=== PATIENT | female | born 2000 | race American Indian/Alaskan Native ===

== ENCOUNTER 2020-05-21 07:33 | Inpatient (IN) | payer MEDICAID ==
[2020-05-21] MEDS ORDERED: LIDOCAINE (2%) 20 MG/1 ML VIAL 20 ML MDV INFILTRATI NR (08:35)
[2020-05-21] MEDS ORDERED: OXYTOCIN DRIP 30 UNITS/500 ML BAG IV SCH ×2 (09:00)
[2020-05-21] MEDS ORDERED: TERBUTALINE 1 MG/1 ML INJ SUB-Q PRN (09:00)
[2020-05-21] MEDS ORDERED: ePHEDrine SULFATE 50 MG/1 ML INJ IV PRN ×2 (09:00→12:32)
[2020-05-21] MEDS ORDERED: LACTATED RINGERS 1,000 ML IV SCH (09:00)
[2020-05-21] MEDS ORDERED: BUTORPHANOL 2 MG/1 ML INJ IV PRN (09:00)
[2020-05-21 09:17] LABS: Hematocrit 35.7 % (30.3-42.9); Hemoglobin 12.6 gm/dl (10.1-14.3); Mean Corpuscular HGB Conc 35 % (30-34); Mean Corpuscular Volume 90 fl (79-97); Platelet Count 323 K/mm3 (140-440); Red Blood Count 3.95 M/mm3 (3.65-5.03); Red Cell Distribution Width 13.9 % (13.2-15.2)
[2020-05-21] MEDS ORDERED: NALOXONE 2 MG/2 ML INJ IV PRN (12:32)
[2020-05-21] MEDS ORDERED: fentaNYL-BUPIV 2 MCG/ML-0.125% 200 MCG/100 ML BAG EPIDURAL SCH (13:00)
--- NOTE | 2020-05-21 14:00 | Anesthesia Consultation ---
Anesthesia Consult and Med Hx Date of service: 05/21/20 - Airway Anesthetic Teeth Evaluation: Good ROM Head & Neck: Adequate Mental/Hyoid Distance: Adequate Mallampati Class: Class II Intubation Access Assessment: Probably Good - Pre-Operative Health Status ASA Pre-Surgery Classification: ASA2 Proposed Anesthetic Plan: Epidural, Spinal - Pulmonary Hx Asthma: No - Cardiovascular System Hx Hypertension: No - Central Nervous System Hx Seizures: No Hx Psychiatric Problems: No - Endocrine Hx Renal Disease: No Hx Hypothyroidism: No Hx Hyperthyroidism: No - Hematic Hx Anemia: No Hx Sickle Cell Disease: No - Other Systems Hx Alcohol Use: No
--- NOTE | 2020-05-21 14:09 | Progress Note ---
Labor Epidural - Labor Epidural Start Time: 12:40 Stop Time: 12:54 Performed by:: LETITIA CONROY Procedure: Combine spinal epidural for labor After reviewing the labs and anesthesia consent patient is positioned sitting in the bed. Done procedural timeout. Lumbar area was prepped with betadine x3. Local Lidocaine 1%-3cc. L3-4 space G18 epidural needle to loss of resistance with water technique. No blood/CSF. G27 needle placed intrathecally. Injected Marcaine 0.75%-0.5cc. Epidural catheter threaded to 5cm in the epidural space. Negative test dose. Tolerated well. No complications
[2020-05-21] MEDS ORDERED: MINERAL OIL 30 ML ORAL LIQD ONE (15:58)
--- NOTE | 2020-05-21 16:54 | History and Physical Report ---
History of Present Illness Date of examination: 05/21/20 Date of admission: 05/21/20 15:49 Chief complaint: I'm in labor History of present illness: Pt gayle 19 year old who presents wiht contractions since 399.Pt had ROM while in triage. She has had an uncomplicated course with care since first trimester. She is GBS negative, Past History Past Medical History: no pertinent history Past Surgical History: no surgical history Social history: no significant social history - Obstetrical History Expected Date of Delivery: 05/27/20 Actual Gestation: 39 Week(s) 1 Day(s) : 1 Number of Living Children: 0 Medications and Allergies Allergies Allergy/AdvReac Type Severity Reaction Status Date / Time No Known Allergies Allergy Verified 05/21/20 08:03 Home Medications Medication Instructions Recorded Confirmed Last Taken Type Calcium Carbonate [Tums 500MG CHEW] 1 tab PO DAILY 05/21/20 05/21/20 05/20/20 History Ondansetron HCl [Zofran] 4 mg PO DAILY PRN 05/21/20 05/21/20 05/20/20 History Vitamin 1 tab PO DAILY 05/21/20 05/21/20 05/20/20 History Active Meds: Active Medications Butorphanol Tartrate (Butorphanol 2 Mg/1 Ml Inj) 2 mg IV Q2H PRN PRN Reason: Pain , Severe (7-10) Ephedrine Sulfate (Ephedrine Sulfate 50 Mg/1 Ml Inj) 10 mg IV Q2M PRN PRN Reason: Hypotension Last Admin: 05/21/20 13:18 Dose: 10 mg Documented by: Oxytocin/Sodium Chloride (Pitocin/Ns 30 Unit/500ml) 30 units in 500 mls @ 2 m ls/hr IV TITR LILIA; Protocol Last Admin: 05/21/20 09:57 Dose: 4 ml/hr, 4 mls/hr Documented by: Lactated Ringer's (Lactated Ringers) 1,000 mls @ 125 mls/hr IV DIRECT LILIA Last Admin: 05/21/20 09:50 Dose: 125 mls/hr Documented by: Oxytocin/Sodium Chloride (Pitocin/Ns 30 Unit/500ml) 30 units in 500 mls @ 40 mls/hr IV TITR LILIA; Protocol Fentanyl/Bupivacaine/Sodium Chlor (Fentanyl-Bupiv 2 Mcg/Ml-0.125%) 200 mcg in 100 mls @ 12 mls/hr EPIDURAL TITR LILIA; Protocol Last Admin: 05/21/20 13:25 Dose: 12 mls/hr Documented by: Mineral Oil (Mineral Oil 30 Ml Oral Liqd) 30 ml PO QHS PRN PRN Reason: Constipation Naloxone HCl (Naloxone 2 Mg/2 Ml Inj) 0.2 mg IV Q5M PRN PRN Reason: Respiratory sedation Terbutaline Sulfate (Terbutaline 1 Mg/1 Ml Inj) 0.25 mg SUB-Q ONCE PRN PRN Reason: Hyperstimulation/Hypertonicity Review of Systems All systems: negative Genitourinary: leakage of fluid, contractions - Vital Signs Vital signs: Vital Signs Temp Pulse Resp BP Pulse Ox 98.9 F 95 H 16 123/79 98 05/21/20 08:21 05/21/20 08:21 05/21/20 08:21 05/21/20 08:21 05/21/20 08:21 Temp Pulse Resp BP Pulse Ox 98.9 F 118 H 16 125/60 88 05/21/20 08:21 05/21/20 16:46 05/21/20 08:21 05/21/20 16:46 05/21/20 16:45 - Physical Exam Breasts: Positive: deferred Cardiovascular: Regular rate, Normal S1, Normal S2 Lungs: Positive: Clear to auscultation, Normal air movement Abdomen: Positive: normal appearance, soft, normal bowel sounds. Negative: distention, tenderness Genitourinary (Female): Positive: normal external genitalia, normal perenium Vulva: both: normal Vagina: Positive: normal moisture. Negative: discharge Cervix: Negative: lesion, discharge Uterus: Positive: normal size, normal contour Adnexa: both: normal Anus/Rectum: Positive: normal perianal skin, heme negative. Negative: rectal mass, hemorrhoids Extremities: Deep Tendon Reflex Grade: Normal +2 - Obstetrical Cervical Dilatation: 0 Cervical Effacement Percentage: 30 station: +1 Uterine Contraction Pattern: Irregular Uterine Contraction Intensity: Moderate Results Result Diagrams: 05/21/20 08:35 Abnormal lab results 05/21/20 Range/Units 08:35 MCHC 35 H (30-34) % All other labs normal. Assessment and Plan IUP at 39.1 weeks in labor with ROM. Admit for labor augmentation. Begin pitocin. Anticipate .
--- NOTE | 2020-05-21 16:56 | Procedure Note ---
OB Delivery Note - Delivery Date of Delivery: 05/21/20 Surgeon: UNIQUE TRUONG Estimated blood loss: 200cc - Vaginal Delivery presentation: vertex Delivery position: OA Intrapartum events: PROM->1hr before delivery, bleeding site-undetermine Delivery induction: none Delivery augmentation: pitocin Delivery monitor: external FHT, external uterine Route of delivery: Delivery placenta: spontaneous Delivery cord: 3 umbilical vessels Episiotomy: none Delivery laceration: 2nd degree Delivery repair: vicryl Anesthesia: epidural Delivery comments: Viable female delivered over intact perineum with no nuchal cord. Infant had spontaneous cry and was placed on maternal abdomen had . Cord w as clamped and cut when done pulsating. Apgars 7 and 9. Weight 5 pounds 10 ounces. Placenta delivered spontaneously and intact with three-vessel cord. Second-degree laceration repaired successfully with 2-0 Vicryl. The patient tolerated procedure well. There was excellent hemostasis. - A at 1 minute: 7 at 5 minutes: 9 Gender: Female (5,10)
[2020-05-21] MEDS ORDERED: PROMETHAZINE 25 MG TAB PO PRN (20:42)
[2020-05-21] MEDS ORDERED: WITCH HAZEL/ GLYCERIN PAD TP PRN (20:42)
[2020-05-21] MEDS ORDERED: ONDANSETRON 4 MG/2 ML INJ IV PRN (20:42)
[2020-05-21] MEDS ORDERED: HYDROcodone/ACETAMINOPHEN 5-325 MG TAB PO PRN (20:42)
[2020-05-21] MEDS ORDERED: LANOLIN/ZINC/DIMETHICONE (LANSINOH) 7 GM TP PRN (20:42)
[2020-05-21] MEDS ORDERED: diphenhydrAMINE 25 MG CAP PO PRN (20:42)
[2020-05-21] MEDS ORDERED: MAGNESIUM HYDROXIDE (MOM) ORAL LIQD UDC PO PRN (20:42)
[2020-05-21] MEDS ORDERED: PROMETHAZINE 25 MG RECT SUPP PR PRN (20:42)
[2020-05-21] MEDS: DOCUSATE SODIUM 100 MG CAP PO SCH (21:42)
[2020-05-21] MEDS ORDERED: MINERAL OIL 30 ML ORAL LIQD PO PRN (22:00)
[2020-05-21] MEDS: IBUPROFEN 600 MG TAB PO SCH (23:22)
[2020-05-22] MEDS: IBUPROFEN 600 MG TAB PO SCH ×2 (05:26→10:59)
[2020-05-22 10:39] LABS: Hematocrit 30.2 % (30.3-42.9); Hemoglobin 10.3 gm/dl (10.1-14.3)
--- NOTE | 2020-05-22 10:52 | Post Anesthesia Evaluation ---
- Post Anesthesia Evaluation Patient Participated: Yes Airway Patent: Yes Stable Respiratory Function: Yes Nausea/Vomiting: No Temp > 96.8F: Yes Pain Manageable: Yes Adequeate Hydration: Yes Anesthesia Complications: No Block Receding Appropriately: Yes Patient on Ventilator: No
[2020-05-22] MEDS: DOCUSATE SODIUM 100 MG CAP PO SCH ×2 (10:59→21:57)
[2020-05-22] MEDS: PRENATAL VIT27-FE FUMARATE-FOLIC ACID VIT TAB PO SCH (10:59)
[2020-05-23] MEDS: IBUPROFEN 600 MG TAB PO SCH ×3 (01:22→08:42)
--- NOTE | 2020-05-23 10:21 | Progress Note ---
Assessment and Plan PPD 2 s/p doing well. Pt is ok for discharge on today. Discharge was delayed due to needing to stay longer. Subjective - Subjective Date of service: 05/22/20 Interval history: Pt gayle 19 year old who presents wiht contractions since 0400.Pt had ROM while in triage. She has had an uncomplicated course with care since first trimester. She is GBS negative, Patient reports: appetite normal, voiding normally, pain well controlled, ambulating normally : doing well Objective - Vital Signs Latest vital signs: Vital Signs Temp Pulse Resp BP BP Pulse Ox 05/23/20 02:20 20 05/22/20 23:41 98.3 F 93 H 18 107/61 99 05/22/20 15:20 98.1 F 87 20 121/76 05/22/20 12:57 98.4 F 106 H 18 119/77 Intake and Output 05/22/20 05/23/20 05/23/20 22:59 06:59 14:59 Intake Total 800 120 Output Total 600 Balance 200 120 Intake: Oral 440 120 Intake, Free Water 360 Output: Urine 600 Void 600 Other: Total, Intake Amount 120 120 Total, Output Amount 600 # Voids Void 1 1 - Exam Breasts: Present: deferred Cardiovascular: Present: Regular rate, Normal S1, Normal S2 Lungs: Present: Clear to auscultation, Normal air movement Abdomen: Present: normal appearance, soft Uterus: Present: normal, firm Extremities: Present: normal - Labs Labs: Abnormal lab results 05/22/20 Range/Units 09:44 Hct 30.2 L (30.3-42.9) %
[2020-05-23] MEDS: PRENATAL VIT27-FE FUMARATE-FOLIC ACID VIT TAB PO SCH (10:25)
--- NOTE | 2020-05-23 10:28 | Discharge Summary ---
Providers - Providers Date of Admission: 05/21/20 15:49 Date of discharge: 05/23/20 Attending physician: UNIQUE TRUONG Primary care physician: UNIQUE TRUONG Hospitalization Reason for admission: active labor, rupture of membranes Delivery: Episiotomy: none Laceration: 2nd degree complications: none Discharge diagnosis: IUP at term delivered baby: female Hospital course: unremarkable Condition at discharge: Good Disposition: DC-01 TO HOME OR SELFCARE Plan - Discharge Medications Prescriptions: Ibuprofen [Motrin] 800 mg PO Q8HR PRN #40 tablet PRN Reason: Pain, Mild (1-3) HYDROcodone/APAP 5-325 [[place] 5/325] 1 each PO Q6HR PRN #15 tablet PRN Reason: Pain - Provider Discharge Summary Activity: routine, no sex for 6 weeks, no heavy lifting 4 weeks, no strenuous exercise Diet: routine Instructions: routine Additional instructions: [] Smoking cessation referral if applicable(refer to patient education folder for contact #) [] Refer to [facility] Call your doctor immediately for: * Fever > 100.5 * Heavy vaginal bleeding ( >1 pad per hour) * Severe persistent headache * Shortness of breath * Reddened, hot, painful area to leg or breast * Drainage or odor from incision. * Keep incision clean and dry at all times and follow doctor's instructions regarding bathing/showering - Follow up plan Follow up: UNIQUE TRUONG MD [Primary Care Provider] - 6 Weeks
[2020-05-23] MEDS: DOCUSATE SODIUM 100 MG CAP PO SCH (10:55)
[2020-05-23 12:40] VITALS: BP 121/73
== END 2020-05-23 15:21 | disposition home or self-care (01) | DRG 775 ==
LOC: TRG 07:33 → LD 15:49 → OB 20:05
PROVIDERS: ADMIT Obstetrics & Gynecology; ATTEND Obstetrics & Gynecology
PROC: 10E0XZZ Delivery of Products of Conception, External Approach (ICD-10-PCS; principal; 2020-05-21)
PROC: 0KQM0ZZ Repair Perineum Muscle, Open Approach (ICD-10-PCS; 2020-05-21)
PROC: 3E0R3BZ Introduction of Anesthetic Agent into Spinal Canal, Percutaneous Approach (ICD-10-PCS; 2020-05-21)
PROC: 00HU33Z Insertion of Infusion Device into Spinal Canal, Percutaneous Approach (ICD-10-PCS; 2020-05-21)
DX: O70.1 Second degree perineal laceration during delivery (principal); Z37.0 Single live birth; Z3A.39 39 weeks gestation of pregnancy; Z79.899 Other long term (current) drug therapy; Z79.891 Long term (current) use of opiate analgesic; Z20.822 Contact with and (suspected) exposure to COVID-19
CPT/HCPCS: 36415; 85014; 85018; 85027; 86592; 86850; 86900; 86901; 88307; G0378; J2590; J7120; U0003